=== PATIENT | female | born 1930 | race Caucasian/White ===

== ENCOUNTER 2018-05-31 04:20 | Emergency (ER) | payer MEDICARE ==
[~2018-05-31] VITALS: Ht 162.6 cm; Wt 60.0 kg
[2018-05-31] MEDS ORDERED: methylPREDNISolone sod succ 125mg/2ml vial IV ONE (04:35)
[2018-05-31] MEDS ORDERED: azithromycin/NS 500mg/250ml 250 ML IV ONE (04:35)
[2018-05-31] MEDS ORDERED: ipratropium/albuterol 3ml nebule NEB ONE (04:35)
[2018-05-31 05:17] LABS: BASOPHILS # (AUTO) 0.1 X10'3 (0-0.2); BASOPHILS % (AUTO) 1.3 % (0-1); EOSINOPHILS # (AUTO) 0.6 X10'3 (0-0.9); EOSINOPHILS % (AUTO) 10.6 % (0-6); HEMATOCRIT 32.5 % (35.0-45.0); HEMOGLOBIN 10.5 g/dl (12.0-16.0); LYMPHOCYTES # (AUTO) 0.7 X10'3 (1.1-4.8); LYMPHOCYTES % (AUTO) 12.5 % (21-51); MEAN CORPUSCULAR HEMOGLOBIN 35.4 PG (27.0-31.0); MEAN CORPUSCULAR HGB CONC 32.2 g/dL (33.0-36.5); MEAN CORPUSCULAR VOLUME 109.7 FL (78-98); MONOCYTES # (AUTO) 0.6 X10'3 (0-0.9); MONOCYTES % (AUTO) 11.7 % (2-12); NEUTROPHILS # (AUTO) 3.5 X10'3 (1.8-7.7); NEUTROPHILS % (AUTO) 63.9 % (42-75); RED BLOOD COUNT 2.96 X10'6 (4.20-5.60); RED CELL DISTRIBUTION WIDTH 18.7 % (11.5-14.5); WHITE BLOOD COUNT 5.5 X10'3 (4.5-11.0)
[2018-05-31] MEDS ORDERED: CARV-50 PO (05:23)
[2018-05-31] MEDS ORDERED: POTA10TA19 PO (05:23)
[2018-05-31] MEDS ORDERED: FURO-150 PO (05:23)
[2018-05-31] MEDS ORDERED: CEFD300C3 PO (05:23)
[2018-05-31] MEDS ORDERED: PANT-47 PO (05:23)
[2018-05-31] MEDS ORDERED: LANTUS SQ (05:23)
[2018-05-31] MEDS ORDERED: FLO0.4C PO (05:24)
[2018-05-31 05:29] LABS: ALANINE AMINOTRANSFERASE 118 U/L (12-78); ALBUMIN 2.9 G/DL (3.4-5.0); ALBUMIN/GLOBULIN RATIO 0.9 (1.1-1.5); ALKALINE PHOSPHATASE 91 IU/L (46-116); ANION GAP 11 (8-16); ASPARTATE AMINO TRANSFERASE 119 U/L (10-37); BILIRUBIN,TOTAL 0.8 MG/DL (0.1-1.0); BLOOD UREA NITROGEN 55 MG/DL (7-18); BUN/CREATININE RATIO 24.8 (6.6-38.0); CALCIUM 8.5 MG/DL (8.5-10.1); CHLORIDE 105 MMOL/L (99-107); CREATININE 2.22 MG/DL (0.40-0.90); GLUCOSE 115 MG/DL (70-104); POTASSIUM 3.6 MMOL/L (3.5-5.1); SODIUM 142 MMOL/L (135-145); TOTAL CARBON DIOXIDE 25.9 MMOL/L (24-32); eGFR 21 ML/MIN
[2018-05-31 05:37] LABS: MAGNESIUM 2.4 MG/DL (1.5-2.4)
[2018-05-31 05:38] LABS: ANISOCYTOSIS 2+; PLATELET COUNT 82 X10'3 (140-440); PLATELET ESTIMATE DECREASED; POLYCHROMASIA 1+
[2018-05-31] MEDS ORDERED: PRED20TA PO (05:49)
[2018-05-31] MEDS ORDERED: AZIT250T2 PO (05:49)
--- NOTE | 2018-05-31 06:24 | NUR ---
PC CALLED FOR TRANSPORT. WILL CALL US BACK IN [place] 5 MIN TO SCHEDULE INSPECTION SUPERVISOR
[2018-05-31 06:41] VITALS: BP 132/62
--- NOTE | 2018-05-31 06:41 | NUR ---
pt son went home to get clothes for pt as he states PC is too expensive and he will take her home
== END 2018-05-31 07:56 | disposition home or self-care (01) ==
LOC: EDBD 04:20 → ER 04:20
DX: J44.9 Chronic obstructive pulmonary disease, unspecified (principal); J40 Bronchitis, not specified as acute or chronic; I50.9 Heart failure, unspecified; E11.9 Type 2 diabetes mellitus without complications; G89.29 Other chronic pain; Z86.73 Personal history of transient ischemic attack (TIA), and cerebral infarction without residual deficits; Z85.841 Personal history of malignant neoplasm of brain; Z86.19 Personal history of other infectious and parasitic diseases; Z88.1 Allergy status to other antibiotic agents; Z88.5 Allergy status to narcotic agent; Z79.899 Other long term (current) drug therapy; Z79.4 Long term (current) use of insulin
CPT/HCPCS: 36415; 71045; 80053; 83735; 83880; 84484; 85025; 93005; 94640; 94760; 96365; 96366; 96375; 99284; J0456; J2930